=== PATIENT | female | born 1995 | race Caucasian/White ===

== ENCOUNTER 2017-12-16 13:44 | Emergency (ER) | payer BC, MEDICAID ==
[~2017-12-16] VITALS: Ht 170.2 cm; Wt 124.3 kg
[2017-12-16 13:56] VITALS: BP 132/78; Ht 170.2 cm; Wt 124.3 kg
== END 2017-12-16 16:02 | disposition home or self-care (01) ==
LOC: ED 13:44
DX: H66.92 Otitis media, unspecified, left ear (principal); E11.9 Type 2 diabetes mellitus without complications

== ENCOUNTER 2018-10-15 12:36 | Emergency (ER) | payer MEDICAID ==
[~2018-10-15] VITALS: Ht 170.2 cm; Wt 122.9 kg
[2018-10-15 12:43] VITALS: BP 114/66; Ht 170.2 cm; Wt 122.9 kg
== END 2018-10-15 13:14 | disposition home or self-care (01) ==
LOC: ED 12:36
DX: S00.451A Superficial foreign body of right ear, initial encounter (principal); H60.91 Unspecified otitis externa, right ear; E78.00 Pure hypercholesterolemia, unspecified; F41.9 Anxiety disorder, unspecified; Z86.2 Personal history of diseases of the blood and blood-forming organs and certain disorders involving the immune mechanism; W45.8XXA Other foreign body or object entering through skin, initial encounter; Y93.89 Activity, other specified; Y92.89 Other specified places as the place of occurrence of the external cause; Y99.8 Other external cause status

== ENCOUNTER 2019-02-02 11:23 | Emergency (ER) | payer OTHER ==
[~2019-02-02] VITALS: Ht 170.2 cm; Wt 119.4 kg
[2019-02-02 11:30] VITALS: BP 159/66; Ht 170.2 cm; Wt 119.4 kg
== END 2019-02-02 12:51 | disposition home or self-care (01) ==
LOC: ED 11:23
DX: S00.452A Superficial foreign body of left ear, initial encounter (principal); E78.00 Pure hypercholesterolemia, unspecified; F41.9 Anxiety disorder, unspecified; E66.01 Morbid (severe) obesity due to excess calories; Z68.41 Body mass index [BMI] 40.0-44.9, adult; Z86.2 Personal history of diseases of the blood and blood-forming organs and certain disorders involving the immune mechanism; W45.8XXA Other foreign body or object entering through skin, initial encounter; Y93.89 Activity, other specified; Y92.89 Other specified places as the place of occurrence of the external cause; Y99.8 Other external cause status

== ENCOUNTER 2019-02-07 13:05 | Emergency (ER) | payer OTHER ==
[~2019-02-07] VITALS: Ht 170.2 cm; Wt 118.8 kg
[2019-02-07 13:20] VITALS: BP 120/76
== END 2019-02-07 16:25 | disposition home or self-care (01) ==
LOC: ED 13:05
DX: S00.451A Superficial foreign body of right ear, initial encounter (principal); F41.9 Anxiety disorder, unspecified; E78.00 Pure hypercholesterolemia, unspecified; Z86.2 Personal history of diseases of the blood and blood-forming organs and certain disorders involving the immune mechanism; W45.8XXA Other foreign body or object entering through skin, initial encounter; Y93.89 Activity, other specified; Y92.89 Other specified places as the place of occurrence of the external cause; Y99.8 Other external cause status

== ENCOUNTER 2020-01-11 19:56 | Emergency (ER) | payer OTHER ==
[~2020-01-11] VITALS: Ht 170.2 cm; Wt 94.3 kg
[2020-01-11 20:08] VITALS: Ht 170.2 cm; Wt 94.3 kg
[2020-01-11 23:24] VITALS: BP 1122/70
== END 2020-01-11 23:24 | disposition home or self-care (01) ==
LOC: ED 19:56
DX: R07.89 Other chest pain (principal); Z13.9 Encounter for screening, unspecified